=== PATIENT | male | born 1985 | race Caucasian/White ===

== ENCOUNTER 2018-07-06 13:01 | Emergency (ER) | payer SELFPAY ==
[~2018-07-06] VITALS: Ht 175.3 cm; Wt 102.1 kg
[~2018-07-06 13:01] MED LIST: ADVIL200 MG PO
[2018-07-06] MEDS ORDERED: DELTASONE20 M1 PO (14:46)
[2018-07-06] MEDS ORDERED: AMOXICILLIN875 MG PO (14:46)
[2018-07-06 15:25] VITALS: BP 141/97
== END 2018-07-06 15:26 | disposition home or self-care (01) ==
LOC: EME 13:01
DX: H65.91 Unspecified nonsuppurative otitis media, right ear (principal); H66.91 Otitis media, unspecified, right ear
CPT/HCPCS: 99281; 99283